=== PATIENT | male | born 1995 | race Caucasian/White ===

== ENCOUNTER 2016-10-01 15:03 | Emergency (ER) | payer OTHER ==
[~2016-10-01] VITALS: Ht 182.9 cm; Wt 90.4 kg
[2016-10-01 15:21] VITALS: TEMP 36.6; Ht 182.9 cm; Wt 90.4 kg
[2016-10-01] MEDS ORDERED: CREA1POW PO (15:37)
[2016-10-01] MEDS ORDERED: PROPARACAINE HCL 0.5% OP SOLN 15 ML BTL OP STA (15:37)
[2016-10-01] MEDS ORDERED: OXYCODONE HCL IR 5 MG TAB (IMMEDIATE RELEASE) PO STA (16:08)
[2016-10-01] MEDS ORDERED: CIPR0.3S OPB (16:14)
[2016-10-01] MEDS ORDERED: OXYC1TAB3 PO (16:14)
--- NOTE | 2016-10-01 16:23 | EMERGENCY ROOM VISIT NOTE ---
History First contact with patient: 15:25 Chief Complaint: EYE ASSESSMENT Stated Complaint: SCRATCH ON EYE History of Present Illness The patient is a 21 year old male who presents to the Emergency Room with complaints of bilateral eye discomfort. The patient reports that his symptoms started this morning upon awakening. The patient reports that he recently switched contact lens brands. He recently was wearing his contact lenses overnight. The patient reports headaches, rhinorrhea, light sensitivity and tearing of both eyes. He was initially evaluated at the [facility] urgent care center and was referred here for further evaluation. The patient rates his discomfort a 10 out of 10. Review of Systems 10 system review was performed and was negative except for pertinent positives and negatives as indicated in history of present illness Past Medical/Surgical History Medical Problems: (1) No significant past medical history Surgical Problems: (1) No history of previous surgery Family History FH: hypertension Social History Smoking Status: Never Smoker Alcohol Use: occasionally Marital Status: single Occupation Status: [employer] student Current/Historical Medications Scheduled Ciprofloxacin Hcl (Ophth) (Ciloxan Oph), 1 DROP OPB Q4H Creatinine (Bulk) (Creatinine), 15 GM PO DAILY Scheduled PRN Oxycodone Ir (Roxicodone Ir), 1-2 TAB PO Q4H PRN for Pain Allergies Coded Allergies: Sulfa Antibiotics (Verified Allergy, Unknown, UNKNOWN, 10/01/16) Physical Exam Vital Signs Date Time Temp Pulse Resp B/P Pulse Ox O2 Delivery O2 Flow Rate FiO2 10/01/16 15:21 36.6 71 16 115/46 98 Room Air Right Eye Acuity: 20/70 w/o corrective lensses Left Eye Acuity: 20/70 w/o corrective lenses Physical Exam CONSTITUTIONAL: Healthy and well nourished. Alert and oriented X 3 with positive affect. Patient is in moderate discomfort. HEENT: Normocephalic, atraumatic. Pupils equal, round and reactive. Patient is photophobic, precluding funduscopic exam. The patient has mild conjunctival injection. No mucopurulent drainage noted. Ears and nares are otherwise clear. NECK: Full active range of motion without discomfort. RESPIRATORY: Clear to auscultation bilaterally with no wheezing, crackles, rhonchi or stridor. CARDIOVASCULAR: Regular rate and rhythm with no murmurs, rubs or gallops. MUSCULOSKELETAL: Full range of motion of all joints without discomfort. INTEGUMENTARY: No rash or other significant dermatologic conditions noted. NEUROLOGIC: No focal neurologic deficits noted. Medical Decision & Procedures Procedure Slit lamp and fluorescein exam were performed after instilling 2 Alcaine eyedrops in each eye. This completely resolved the patient's discomfort. Examination shows no mucopurulent drainage. No foreign debris is noted. Negative cell flare, negative hyphema. Fluorescein exam shows significant conjunctival punctate uptake. No abrasions, ulcerations or hypopyon. ED Course Patient history and physical exam were performed. Nurse's notes were reviewed. Clinical exam is consistent with a lateral contact lens induced keratitis. The patient was administered OxyIR 10 mg orally. The patient was provided prescriptions for Ciloxan 0.3% ophthalmic solution and OxyIR 5 mg. He was encouraged to also apply cool compresses to the eyes, and wear sunglasses as needed. No contact lens use for the next 10-14 days. The patient was instructed to follow-up with his senior industrial engineer if no improvement within the next 48 hours. If he is unable to secure this appointment, he was instructed to return to the emergency department. The patient was happy with plan of care, voiced understanding of all discharge instructions, and denied any pain at the conclusion of my exam. Medical Decision Impression Primary Impression: Bilateral contact lens induced keratopathy Departure Information Dispostion Home / Self-Care Prescriptions Oxycodone Ir (Roxicodone Ir) 5 Mg Tab 1-2 TAB PO Q4H Y for Pain, #15 TAB For Initial Treatment Prov: Vinicius Thomas PA 10/01/16 Ciprofloxacin Hcl (Ophth) (CILOXAN OPH) 0.3 % Kathy 1 DROP OPB Q4H for 7 Days, #1 BTL Prov: Vinicius Thomas PA 10/01/16 Forms HOME CARE DOCUMENTATION FORM, IMPORTANT VISIT INFORMATION Patient Instructions My [facility] Additional Instructions Administered to ciprofloxacin eyedrops every 4 hours (while awake) for 7 days. Ibuprofen 800 mg and/or Tylenol 1000 mg every 8 hours. You may also alternate these medications for more effective pain relief: Ibuprofen --4 HRS--> Tylenol --4 HRS--> ibuprofen --4 HRS--> Tylenol .... OxyIR if needed for worse pain. Do not drink or drive while taking OxyIR. Intermittently apply cool compresses to the eyes, and wear sunglasses for additional relief. Follow-up with your senior industrial engineer, or return to the emergency department, if symptoms have not significantly improved within 48 hours. FOR SCHOOL: Please allowed to makeup tests over the next week as needed due to the patient's current painful condition and blurred vision.
[2016-10-01 16:34] VITALS: BP 126/63; PULSE 71; O2SAT 98
== END 2016-10-01 16:34 | disposition home or self-care (01) ==
LOC: C.EDB 15:05 → C.EDD 16:34
DX: H18.823 Corneal disorder due to contact lens, bilateral (principal)